=== PATIENT | female | born 1945 | race Caucasian/White ===

== ENCOUNTER 2017-02-19 09:32 | Day surgery (SDC) | payer MEDICARE, OTHER ==
--- NOTE | ~2017-02-19 | EGD ---
EGD REPORT [facility] [address] [place] [address] NAME: AKILA CLEANING : [birth year] [place]US [place] [facility] [place] [id number] AGE: 71 ADM/REG DATE : 02/19/17 MR#: [id number] REPORT SERV DATE: 02/19/17 DICTATED BY: MYLA CANNON DATE: 02/19/17 REPORT STATUS : Draft TRANSCRIBED BY: [facility] DATE: 02/19/17 Endoscopy Center Patient Name: Akila Cleaning Date of : 1945 Attending MD: MYLA CANNON MD Procedure Date No Time: 02/19/2017 Procedure: Colonoscopy Indications: Clinically significant diarrhea of unexplained origin Referring MD: ESTEPHANIA MORRISON Medicines: as per anesthesia Complications: No immediate complications. Procedure: Pre-Anesthesia Assessment: - ASA Grade Assessment: III - A patient with severe systemic disease. After I obtained informed consent, the scope was passed under direct vision. Throughout the procedure, the patient's blood pressure, pulse, and oxygen saturations were monitored continuously. The PCF [id number] was introduced through the anus and advanced to the cecum, identified by appendiceal orifice and ileocecal valve. The colonoscopy was somewhat difficult due to significant looping and a tortuous colon. The patient tolerated the procedure. The quality of the bowel preparation was fair. Findings: The perianal and digital rectal examinations were normal. Internal hemorrhoids were found during endoscopy and were mild. Four biopsies were obtained in the rectum and in the transverse colon with cold forceps for histology. Impression: - Internal hemorrhoids. - Four biopsies were obtained in the rectum and in the transverse colon. Recommendation: - Await pathology results. Procedure Code(s): --- Professional --- 45226, Colonoscopy, flexible, proximal to splenic flexure; with biopsy, single or multiple Diagnosis Code(s): --- Professional --- K64.8, Other hemorrhoids R19.7, Diarrhea, unspecified EGD REPORT [facility] [address] [place]. [address] NAME: AKILA CLEANING : [birth year] [place] [facility] [place] [id number] AGE: 71 ADM/REG DATE : 02/19/17 MR#: [id number] REPORT SERV DATE: 02/19/17 DICTATED BY: MYLA CANNON. DATE: 02/19/17 REPORT STATUS : Draft TRANSCRIBED BY: [employer] DATE: 02/19/17 CPT copyright 2013 [employer] [place] [employer] [employer]. All rights reserved. The codes documented in this report are preliminary and upon braille coder review may be revised to meet current compliance requirements. MYLA CANNON MD 02/19/2017 11:03 AM This report has been signed electronically. Number of Addenda: 0 Note Initiated On: 02/19/2017 10:23 AM Scope Withdrawal Time 0 hours 0 minutes 0 seconds [address] [place] [address]
[~2017-02-19 09:32] MED LIST: ALBUTEROL0.083 % INH; ASAB PO; CELEXA20 PO; CITRACAL PO; CLARIT10 PO; COREG12 PO; CYANO1000T PO; DOX10 PO; ESTRADIOL2 MG OR; FLEX PO; GLUCOPHAGE1000 MG PO; HYDROCHLOROT25 MG PO; IRON PO; KLOR-CON M2020 MEQ PO; L20 PO; LEVOTHYROXIN100 MCG PO; MEVACOR40 MG PO; NAP500 PO; PEP20 PO; PROZAC PO
== END 2017-02-19 23:59 | disposition home or self-care (01) ==
LOC: DMU 09:32
PROVIDERS: Internal Medicine Gastroenterology
PROC: 0DBL8ZX Excision of Transverse Colon, Via Natural or Artificial Opening Endoscopic, Diagnostic (ICD-10-PCS; 2017-02-19)
PROC: 0DBP8ZX Excision of Rectum, Via Natural or Artificial Opening Endoscopic, Diagnostic (ICD-10-PCS; principal; 2017-02-19 11:00)
DX: K64.8 Other hemorrhoids (principal); R19.7 Diarrhea, unspecified; E11.9 Type 2 diabetes mellitus without complications; F17.200 Nicotine dependence, unspecified, uncomplicated; Z99.81 Dependence on supplemental oxygen; Z79.899 Other long term (current) drug therapy; Z79.84 Long term (current) use of oral hypoglycemic drugs; Z79.82 Long term (current) use of aspirin; E78.00 Pure hypercholesterolemia, unspecified; I10 Essential (primary) hypertension; J44.9 Chronic obstructive pulmonary disease, unspecified; M19.90 Unspecified osteoarthritis, unspecified site; M81.0 Age-related osteoporosis without current pathological fracture; Z98.890 Other specified postprocedural states; K21.9 Gastro-esophageal reflux disease without esophagitis; Z90.49 Acquired absence of other specified parts of digestive tract; F32.9 Major depressive disorder, single episode, unspecified; F17.210 Nicotine dependence, cigarettes, uncomplicated
CPT/HCPCS: 82962; 88305